=== PATIENT | female | born 1975 | race Two or more races ===

== ENCOUNTER 2019-05-04 19:04 | Emergency (ER) | payer OTHER ==
[2019-05-04 19:13] VITALS: BP 132/97; PULSE 78; TEMP 98.4; BMI 22.0
--- NOTE | 2019-05-04 19:13 | PDOC ---
Rapid Medical Evaluation Time Seen by Provider: 05/04/19 19:09 Medical Evaluation: 05/04/19 19:11 I have performed a brief in-person evaluation of this patient. The patient presents with a chief complaint of: R knee swelling for 2 days. Pt does not recall any injury. She went for a jog on Wednesday. Denies knee pain. No calf pain, no h/o DVT/PE, no OCP use, no recent prolonged immobilization, no recent surgery. Pertinent physical exam findings: Mild diffuse R knee swelling I have ordered the following: R knee xray The patient will proceed to the ED for further evaluation. Discharge Disposition - Diagnosis Swelling of knee - Referrals - Patient Instructions - Post Discharge Activity
--- NOTE | 2019-05-04 19:40 | PDOC ---
History of Present Illness - General Chief Complaint: Edema Stated Complaint: KNEE PAIN Time Seen by Provider: 05/04/19 19:09 History Source: Patient - History of Present Illness Initial Comments: 05/04/19 20:06 43 year old female with right knee swelling after jogging 3 days ago. patient reports that she felt swelling yesterday while at work today worse. reports minimal pain. patient has no swelling/ pain right calf or foot. denies trauma / injury pMHX: hiv on meds/ 05/04/19 20:18 Past History - Past Medical History Allergies/Adverse Reactions: Allergies Allergy/AdvReac Type Severity Reaction Status Date / Time No Known Allergies Allergy Verified 05/04/19 19:13 COPD: No - Surgical History Abdominal Surgery: Yes (hernia) - Suicide/Smoking/Psychosocial Hx Smoking History: Never smoked Review of Systems - Review of Systems Able to Perform ROS?: Yes Is the patient limited Latvian proficient: No Constitutional: No: Symptoms Reported, See HPI, Chills, Diaphoresis, Fever, Loss of Appetite, Malaise, Night Sweats, Weakness, Weight Stable, Unintentional Wgt. Loss, Unexplained wgt Loss, Other Musculoskeletal: Yes: Other (right knee pain) *Physical Exam - Vital Signs Last Vital Signs Temp Pulse Resp BP Pulse Ox 98.4 F 78 18 132/97 98 05/04/19 19:11 05/04/19 19:11 05/04/19 19:11 05/04/19 19:11 05/04/19 19:11 - Physical Exam General Appearance: Yes: Appropriately Dressed Musculoskeletal: positive: Normal Inspection, Other (able to raise leg. right knee swelling) Extremity: positive: Other (+ pedal pulse, no pedal edema) Integumentary: positive: Dry, Warm Neurologic: positive: Fully Oriented, Alert Medical Decision Making - Medical Decision Making 05/04/19 20:12 A: right knee joint effusion p: NSAIDS Xray: + joint effusion *DC/Admit/Observation/Transfer Diagnosis at time of Disposition: Swelling of knee Joint effusion of knee Qualifiers: Laterality: right Qualified Code(s): M25.461 - Effusion, right knee - Discharge Dispostion Disposition: HOME - Referrals Referrals: ON STAFF,NOT [Primary Care Provider] - - Patient Instructions Printed Discharge Instructions: DI for Knee Effusion Additional Instructions: jose d wrap the knee elevate the leg above the level of you heart when sitting and laying apply ice to the area follow up with your doctor as soon as possible. - Post Discharge Activity Forms/Work/School Notes: Back to Work
[2019-05-04] MEDS ORDERED: IBUPROFEN 600 MG TABLET (FP) PO ONE ×2 (20:26→20:31)
== END 2019-05-04 20:33 | disposition home or self-care (01) ==
LOC: JERFT 19:04
DX: M25.461 Effusion, right knee (principal); Z21 Asymptomatic human immunodeficiency virus [HIV] infection status
CPT/HCPCS: 73562-TC-RT-FY; 99282-25

== ENCOUNTER 2019-05-07 21:07 | Emergency (ER) | payer OTHER ==
[2019-05-07 21:21] VITALS: TEMP 98.2; BMI 22.6
--- NOTE | 2019-05-07 22:43 | PDOC ---
History of Present Illness - General Chief Complaint: Pain Stated Complaint: R LEG PAIN Time Seen by Provider: 05/07/19 22:01 History Source: Patient Exam Limitations: No Limitations Past History - Past Medical History Allergies/Adverse Reactions: Allergies Allergy/AdvReac Type Severity Reaction Status Date / Time No Known Allergies Allergy Verified 05/07/19 22:29 Home Medications: Ambulatory Orders Ibuprofen 600 mg PO QID PRN #20 tablet 05/04/19 COPD: No - Surgical History Abdominal Surgery: Yes (hernia) - Suicide/Smoking/Psychosocial Hx Smoking History: Never smoked Hx Alcohol Use: No Drug/Substance Use Hx: No *Physical Exam - Vital Signs Last Vital Signs Temp Pulse Resp BP Pulse Ox 98.2 F 90 20 134/85 100 05/07/19 21:11 05/07/19 21:11 05/07/19 21:11 05/07/19 21:11 05/07/19 21:11 - Physical Exam General Appearance: No: Apparent Distress Extremity: positive: Other (+R knee suprapatellar swelling, able to flex R knee to around 45 degrees, able to extend R knee fully, no erythema, no warmth to joint, no streaking, RLE pulses intact). negative: Pedal Edema, Calf Tenderness Integumentary: positive: Normal Color, Swelling. negative: Ecchymosis, Bruising Neurologic: positive: Alert, Normal Mood/Affect Medical Decision Making - Medical Decision Making 43 y/o F hx of HIV presents with R knee pain. 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 Noticed the swelling 2 days later. No trauma occurred. Patient was seen here few days for R knee swelling, had xrays done which were normal, advised cold compresses and Motrin. Patient had R knee xray done when seen which was normal. States swelling has significantly improved with cold compresses and icy hot. However, yesterday noted pain in knee which she didn't have before (pain is only when she sits in certain positions). Denies fever, numbness, weakness. No evidence of septic joint Swelling already improving per patient Given improvement in swelling and no suspicion for infection, will defer drainage of bursitis R knee jose d-wrapped Patient did not want pain meds currently as not in pain Will refer to ortho 05/07/19 22:35 *DC/Admit/Observation/Transfer Diagnosis at time of Disposition: Suprapatellar bursitis of right knee - Discharge Dispostion Disposition: HOME Condition at time of disposition: Stable Decision to Admit order: No - Referrals Referrals: Tylor Coronel MD [Staff Physician] - Call tomorrow - Patient Instructions Printed Discharge Instructions: DI for Bursitis Additional Instructions: Thank you for choosing [facility]. It was a pleasure taking care of you. Continue Motrin 600 mg every 6 hours by mouth as needed for mild to moderate pain. Take Motrin with food. Continue use of jose d - wrap to help improve swelling Continue keeping leg elevated above level of heart Since it has been more than 48 hours since the swelling, you may use either cold or warm compresses to help with swelling You were referred to orthopedic doctor for further evaluation Return to the Emergency Department if your symptoms worsen or persist, have worsening swelling, redness of joint, fever or other concerning symptoms. - Post Discharge Activity
[2019-05-07 22:55] VITALS: BP 127/68; PULSE 82
== END 2019-05-07 22:55 | disposition home or self-care (01) ==
LOC: JERFT 21:07 → JER 21:07 → JERFT 22:55
DX: M70.51 Other bursitis of knee, right knee (principal); Y93.02 Activity, running; Z21 Asymptomatic human immunodeficiency virus [HIV] infection status
CPT/HCPCS: 99282-25

== ENCOUNTER 2024-04-27 21:10 | Emergency (ER) | payer OTHER ==
[2024-04-27 21:16] VITALS: BP 155/94; PULSE 68; RESP 20; TEMP 98.2; BMI 21.9
[2024-04-27] MEDS ORDERED: ACETAMINOPHEN 500 MG TABLET (FP) ONE (21:40)
[2024-04-27] MEDS ORDERED: METHOCARBAMOL 500 MG TABLET ONE (21:40)
[2024-04-27] MEDS ORDERED: KETOROLAC TROMETHAMINE 30 MG/1 ML VIAL ONE (21:40)
[2024-04-27] MEDS: KETOROLAC TROMETHAMINE 30 MG/1 ML VIAL IM ONE (21:46)
[2024-04-27] MEDS: ACETAMINOPHEN 500 MG TABLET (FP) PO ONE (21:46)
[2024-04-27] MEDS: METHOCARBAMOL 500 MG TABLET PO ONE (21:46)
== END 2024-04-27 22:59 | disposition home or self-care (01) ==
LOC: JERFT 21:10
PROC: 3E0133Z Introduction of Anti-inflammatory into Subcutaneous Tissue, Percutaneous Approach (ICD-10-PCS; principal; 2024-04-27)
DX: S39.012A Strain of muscle, fascia and tendon of lower back, initial encounter (principal); M25.551 Pain in right hip; V43.52XA Car driver injured in collision with other type car in traffic accident, initial encounter
CPT/HCPCS: 73502-TC-RT-FY; 99284-25